=== PATIENT | male | born 1985 | race Two or more races ===

== ENCOUNTER 2018-12-01 23:32 | Emergency (ER) | payer MEDICAID, OTHER ==
[~2018-12-01] VITALS: Ht 170.2 cm; Wt 93.0 kg
--- NOTE | 2018-12-01 23:40 | NUR ---
TECH AT BEDSIDE FOR EKG
--- NOTE | 2018-12-01 23:43 | NUR ---
101.7 RECTAL TEMP. AWARE.
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
[2018-12-02 00:06] LABS: BASOPHILS # (AUTO) 0.1 /CMM (0.0-0.2); BASOPHILS % (AUTO) 0.7 % (0.0-2.0); EOSINOPHILS % (AUTO) 2.5 % (0.0-6.0); HEMATOCRIT 44 % (39-51); HEMOGLOBIN 14.6 g/dL (13.5-17.5); LYMPHOCYTES # (AUTO) 1.7 /CMM (0.8-4.8); LYMPHOCYTES % (AUTO) 15.6 % (20.0-44.0); MEAN CORPUSCULAR HGB CONC 34 g/dl (31.0-36.0); MEAN CORPUSCULAR VOLUME 90 fL (80-96); MONOCYTES # (AUTO) 0.5 /CMM (0.1-1.30); MONOCYTES % (AUTO) 4.7 % (2.0-12.0); NEUTROPHILS # (AUTO) 8.5 /CMM (1.8-8.9); NEUTROPHILS % (AUTO) 76.5 % (43.0-81.0); PLATELET COUNT (AUTO) 289 /CMM (150-450); RED BLOOD CELL COUNT(AUTO) 4.84 MIL/uL (4.5-6.0); WHITE BLOOD COUNT (AUTO) 11.1 K/uL (4.3-11.0)
[2018-12-02] MEDS ORDERED: ACETAMINOPHEN 650 MG/SUPP.RECT RC ONE ×2 (00:06)
[2018-12-02 00:12] LABS: CALCIUM, SERUM 8.4 mg/dL (8.5-10.1); CARBON DIOXIDE 16 mmol/L (21-32); CHLORIDE 103 mmol/L (98-107); CREATININE 1.3 mg/dL (0.6-1.3); GLUCOSE 110 mg/dL (74-106); POTASSIUM 3.1 mmol/L (3.5-5.1); SODIUM SERUM 141 mmol/L (136-145); UREA NITROGEN, BLOOD 13 mg/dL (7-18)
--- NOTE | 2018-12-02 00:12 | NUR ---
PHLEB AT BEDSIDE FOR LAB DRAW
--- NOTE | 2018-12-02 00:15 | NUR ---
PT TAKEN TO CT VIA VIRY
[2018-12-02 00:17] LABS: ALANINE AMINOTRANSFERASE 68 U/L (12-78); ALBUMIN 3.6 g/dL (3.4-5.0); ALCOHOL, BLOOD 124 mg/dL (0-0); ALKALINE PHOSPHATASE 98 U/L (46-116); ASPARTATE AMINOTRANSFERASE 61 U/L (15-37); BILIRUBIN,DIRECT 0.1 mg/dL (0.0-0.2); BILIRUBIN,TOTAL 0.3 mg/dL (0.2-1.0); TOTAL PROTEIN, SERUM 7.2 g/dL (6.4-8.2)
[2018-12-02 00:18] LABS: ACETAMINOPHEN 0 ug/ml (10-30); SALICYLATE 2.7 mg/dL (2.8-20.0)
--- NOTE | 2018-12-02 00:43 | NUR ---
PT RETURNED FROM CT. UNABLE TO COMPLETE CT. AWARE.
[2018-12-02] MEDS ORDERED: LORAZEPAM INJ 2 MG/ML VIAL ONE (01:14)
[2018-12-02] MEDS ORDERED: LORAZEPAM INJ 2 MG/ML VIAL IV ONE (01:30)
--- NOTE | 2018-12-02 01:58 | NUR ---
URINE COLLECTED AND SENT TO LAB
[2018-12-02 02:06] LABS: APPEARANCE,URINE CLEAR (CLEAR); BILIRUBIN,URINE NEGATIVE (NEGATIVE); BLOOD, URINE 1+ Ery/uL (NEGATIVE); COLOR,URINE YELLOW (YELLOW); KETONES,URINE NEGATIVE (NEGATIVE); LEUKOCYTE ESTERASE ,URINE NEGATIVE (NEGATIVE); NITRITE, URINE NEGATIVE (NEGATIVE); PH,URINE 5.5 (5.0-8.0); PROTEIN,URINE TRACE mg/dl (NEGATIVE); UGLUCOSE NEGATIVE (NEGATIVE); UROBILINOGEN,URINE 0.2 EU/dL (0.2)
[2018-12-02 02:13] LABS: BACTERIA,URINE Few /HPF (None Seen); SPERM,URINE Few /HPF (None Seen); SQUAMOUS EPITHELIAL CELL,UR Rare /HPF (None Seen); WBC,URINE 0-2 /HPF (0-3)
[2018-12-02] MEDS ORDERED: IV NS 0.9% 1,000 ML BAG IV ONE ×3 (03:00)
[2018-12-02] MEDS ORDERED: POTASSIUM CHLORIDE 20 MEQ TAB.PRT.SR PO ONE ×2 (03:30→03:44)
--- NOTE | 2018-12-02 04:04 | NUR ---
Patient is resting comfortably in bed with eyes closed. Easily aroused. VSS.
--- NOTE | 2018-12-02 04:42 | NUR ---
PHLEB AT BEDSIDE FOR LAB REDRAW
[2018-12-02 05:12] LABS: CALCIUM, SERUM 7.4 mg/dL (8.5-10.1); CREATININE 0.8 mg/dL (0.6-1.3); POTASSIUM 3.6 mmol/L (3.5-5.1)
[2018-12-02 05:17] VITALS: BP 118/81
--- NOTE | 2018-12-02 05:29 | NUR ---
LACTIC ACID 2.4. MD AWARE.
--- NOTE | 2018-12-02 06:11 | NUR ---
IV removed. Catheter intact and site benign. Pressure and 4x4 applied to site. No bleeding noted.Patient discharged to home in stable condition. Written and verbal after care instructions given. Patient verbalizes understanding of instruction. PT REFUSED HOMELESS PACKET, TAP CARD, AND FOOD.
== END 2018-12-02 06:14 | disposition home or self-care (01) ==
LOC: ER 23:34 → EDBD 23:34 → ER 12-02 06:14
DX: F15.10 Other stimulant abuse, uncomplicated (principal); E86.0 Dehydration; E87.2 Acidosis; M62.82 Rhabdomyolysis; F19.10 Other psychoactive substance abuse, uncomplicated; R45.1 Restlessness and agitation; F10.10 Alcohol abuse, uncomplicated; R00.0 Tachycardia, unspecified; F12.10 Cannabis abuse, uncomplicated; F13.20 Sedative, hypnotic or anxiolytic dependence, uncomplicated; Y90.6 Blood alcohol level of 120-199 mg/100 ml
CPT/HCPCS: 36415 ×2; 71045; 80048 ×2; 80076; 80305; 80307; 80329; 81001; 82550 ×2; 83605 ×2; 84484; 85025; 87040 ×2; 93005; 96361; 96374; 99284; G0480; J2060; J7030 ×2; 81000-TC

== ENCOUNTER 2018-12-02 16:17 | Emergency (ER) | payer MEDICAID ==
[~2018-12-02] VITALS: Ht 167.6 cm; Wt 81.6 kg
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
--- NOTE | 2018-12-02 16:32 | NUR ---
DR BURNS AT BEDSIDE
--- NOTE | 2018-12-02 17:19 | NUR ---
Patient discharged to home in stable condition. Written and verbal after care instructions given. Patient verbalizes understanding of instruction.
--- NOTE | 2018-12-02 17:19 | NUR ---
PT WILL BE PICKED UP BY MOTHER. ASSISTED TO WAITING ROOM.
[2018-12-02 17:20] VITALS: BP 148/89
== END 2018-12-02 17:21 | disposition home or self-care (01) ==
LOC: ER 16:22
DX: F41.9 Anxiety disorder, unspecified (principal); F15.10 Other stimulant abuse, uncomplicated; F19.10 Other psychoactive substance abuse, uncomplicated; F10.10 Alcohol abuse, uncomplicated; Y90.9 Presence of alcohol in blood, level not specified

== ENCOUNTER 2019-11-19 10:33 | Emergency (ER) | payer OTHER, MEDICAID ==
[~2019-11-19] VITALS: Ht 167.6 cm; Wt 77.1 kg
[2019-11-19] MEDS ORDERED: TDAP [DIPH/PERTUSSIS/TET] 0.5 ML VIAL IM ONE ×2 (10:49→11:00)
[2019-11-19 11:09] VITALS: BP 130/71
--- NOTE | 2019-11-19 11:09 | NUR ---
lac on the left hand between thumb and index finger. On room air, breathing evenly and unlabored. kept comfortable, will continue to monitor accordingly.
--- NOTE | 2019-11-19 11:10 | NUR ---
Patient discharged to home in stable condition. Written and verbal after care instructions given. Patient verbalizes understanding of instruction.
== END 2019-11-19 11:10 | disposition home or self-care (01) ==
LOC: ER 10:33
DX: S61.211A Laceration without foreign body of left index finger without damage to nail, initial encounter (principal); W26.8XXA Contact with other sharp object(s), not elsewhere classified, initial encounter; Y93.89 Activity, other specified; Y92.89 Other specified places as the place of occurrence of the external cause; Y99.8 Other external cause status
CPT/HCPCS: 90471; 90715; 99283; A6403

== ENCOUNTER 2019-12-17 06:08 | Emergency (ER) | payer MEDICAID, OTHER ==
[~2019-12-17] VITALS: Ht 167.6 cm; Wt 77.1 kg
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
[2019-12-17] MEDS ORDERED: LORAZEPAM 1 MG TABLET ONE (06:36)
[2019-12-17] MEDS ORDERED: LORAZEPAM 1 MG TABLET PO ONE (07:00)
--- NOTE | 2019-12-17 07:19 | NUR ---
ENDORSEMENT RECEIVED FROM ZAHIRA HOLLOWAY FOR KRISH, PATIENT IN BED ASLEEP, AROUSABLE BY PAINFUL STIMULI, DOES NOT ANSWER QUESTIONS. HOOKED TO MONITOR, SITTER AT BEDSIDE. WILL CONTINUE TO MONITOR
--- NOTE | 2019-12-17 08:06 | NUR ---
patient awake. made MD aware
--- NOTE | 2019-12-17 09:12 | NUR ---
psych social worker nayana and dr garnica at bedside
--- NOTE | 2019-12-17 09:29 | NUR ---
Patient given written and verbal discharge instructions. Patient verbalizes understanding of instructions. Patient is ambulatory with steady gait. Refuses offer of penitentiary placement. Patient given list of available shelters in surrounding area. Patiet in proper clothing upon discharge. Name band removed. All belongings returned to patient.
[2019-12-17 09:32] VITALS: BP 147/86
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
== END 2019-12-17 09:33 | disposition home or self-care (01) ==
LOC: ER 06:09
DX: F15.10 Other stimulant abuse, uncomplicated (principal); F10.10 Alcohol abuse, uncomplicated; F17.200 Nicotine dependence, unspecified, uncomplicated; Y90.9 Presence of alcohol in blood, level not specified

== ENCOUNTER 2019-12-20 07:35 | Emergency (ER) | payer MEDICAID ==
[~2019-12-20] VITALS: Ht 165.1 cm; Wt 59.9 kg
[2019-12-20 07:38] VITALS: BP 134/85
--- NOTE | 2019-12-20 07:40 | NUR ---
PT SEEN AND EXAMINED BY .
[2019-12-20] MEDS ORDERED: LORAZEPAM 1 MG TABLET ONE (07:44)
--- NOTE | 2019-12-20 07:56 | NUR ---
Patient given written and verbal discharge instructions. Patient verbalizes understanding of instructions. Patient is ambulatory with steady gait. Refuses offer of halfway placement. Patient given list of available shelters in surrounding area.
[2019-12-20] MEDS ORDERED: LORAZEPAM 1 MG TABLET PO ONE (08:00)
== END 2019-12-20 07:57 | disposition home or self-care (01) ==
LOC: ER 07:42
DX: F15.129 Other stimulant abuse with intoxication, unspecified (principal); F17.200 Nicotine dependence, unspecified, uncomplicated

== ENCOUNTER 2019-12-21 03:30 | Emergency (ER) | payer MEDICAID ==
[~2019-12-21] VITALS: Ht 167.6 cm; Wt 77.1 kg
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
--- NOTE | 2019-12-21 04:00 | NUR ---
PATIENT IS CONNECTED TO DOUGH MOLDER HAND.
--- NOTE | 2019-12-21 06:32 | NUR ---
PT MEDICALLY STABLE FOR D/C. WALKING W/ STEADY GAITS. Patient discharged to home in stable condition. Written and verbal after care instructions given which refused to sign by pt.
[2019-12-21 06:34] VITALS: BP 141/85
== END 2019-12-21 06:34 | disposition home or self-care (01) ==
LOC: ER 03:30
DX: F15.10 Other stimulant abuse, uncomplicated (principal); F17.200 Nicotine dependence, unspecified, uncomplicated

== ENCOUNTER 2019-12-30 10:18 | Emergency (ER) | payer MEDICAID ==
[~2019-12-30] VITALS: Ht 167.6 cm; Wt 77.1 kg
[2019-12-30 10:20] VITALS: BP 133/90
--- NOTE | 2019-12-30 10:28 | NUR ---
SEEN AND EXAMINED BY .
--- NOTE | 2019-12-30 10:34 | NUR ---
Patient discharged to home in stable condition. Written and verbal after care instructions given. Patient verbalizes understanding of instruction.
== END 2019-12-30 10:34 | disposition home or self-care (01) ==
LOC: ER 10:26
DX: F15.10 Other stimulant abuse, uncomplicated (principal); F41.9 Anxiety disorder, unspecified; R00.0 Tachycardia, unspecified

== ENCOUNTER 2020-07-25 18:54 | Inpatient (IN) | payer MEDICAID ==
[~2020-07-25] VITALS: Ht 160 cm; Wt 90.7 kg
--- NOTE | 2020-07-25 19:04 | NUR ---
DR. SHELTON AT BEDSIDE FOR EVAL.
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
--- NOTE | 2020-07-25 19:10 | NUR ---
CALLED POISON CONTROL STATED TO DRAW LABS AND REPEAT IN 4 HRS FOR ANY CHANGES. ALSO TO GIVE ANTIDOTE IF SYMPTOMATIC.
[2020-07-25 19:35] LABS: BASOPHILS % (AUTO) 0.4 % (0.0-2.0); EOSINOPHILS % (AUTO) 0.1 % (0.0-6.0); HEMATOCRIT 43 % (39-51); HEMOGLOBIN 14.4 g/dL (13.5-17.5); LYMPHOCYTES # (AUTO) 1.2 /CMM (0.8-4.8); LYMPHOCYTES % (AUTO) 10.4 % (20.0-44.0); MEAN CORPUSCULAR HGB CONC 34 g/dl (31.0-36.0); MEAN CORPUSCULAR VOLUME 88 fL (80-96); MONOCYTES # (AUTO) 0.9 /CMM (0.1-1.30); NEUTROPHILS # (AUTO) 9.2 /CMM (1.8-8.9); NEUTROPHILS % (AUTO) 81.1 % (43.0-81.0); PLATELET COUNT (AUTO) 271 /CMM (150-450); RED BLOOD CELL COUNT(AUTO) 4.89 MIL/uL (4.5-6.0); WHITE BLOOD COUNT (AUTO) 11.3 K/uL (4.3-11.0)
[2020-07-25 19:46] LABS: CALCIUM, SERUM 8.9 mg/dL (8.5-10.1); CARBON DIOXIDE 25 mmol/L (21-32); CHLORIDE 101 mmol/L (98-107); CREATININE 1.1 mg/dL (0.6-1.3); GLUCOSE 108 mg/dL (74-106); SODIUM SERUM 138 mmol/L (136-145); UREA NITROGEN, BLOOD 19 mg/dL (7-18)
[2020-07-25 19:50] LABS: ACETAMINOPHEN 7 ug/ml (10-30); ALANINE AMINOTRANSFERASE 54 U/L (12-78); ALBUMIN 3.9 g/dL (3.4-5.0); ALKALINE PHOSPHATASE 101 U/L (46-116); ASPARTATE AMINOTRANSFERASE 40 U/L (15-37); BILIRUBIN,DIRECT 0.4 mg/dL (0.0-0.2); TOTAL PROTEIN, SERUM 7.9 g/dL (6.4-8.2)
[2020-07-25 19:52] LABS: ALCOHOL, BLOOD < 3 mg/dL (0-0)
--- NOTE | 2020-07-25 20:00 | NUR ---
PAT PLACED PT ON HOLD FOR DANGER TO SELF
[2020-07-25] MEDS ORDERED: IV NS 0.9% 1,000 ML IV ONE (20:30)
[2020-07-25] MEDS ORDERED: POTASSIUM CHLORIDE 20 MEQ TAB.PRT.SR PO ONE (20:30)
[2020-07-25] MEDS ORDERED: ACETYLCYSTEINE IV 6,000 MG/30 ML VIAL IV ONE (20:30)
--- NOTE | 2020-07-25 20:35 | NUR ---
URINE COLLECTED, SENT TO LAB.
--- NOTE | 2020-07-25 20:50 | NUR ---
PT C/O MINIMAL CP AND SOB. VITALS STABLE, NOTED HR AT 116, MD AWARE.
--- NOTE | 2020-07-25 20:56 | NUR ---
CALLED POSION CONTROL REGARDING PT HAVING A REACTION. POSION CONTROL STATED TO GIVE BENADRYL AND CONTINUE MUCOMYST AFTER.
--- NOTE | 2020-07-25 21:00 | NUR ---
MUCOMYST DRIP 150MG/KG ([id number]) GIVEN TO PT OVER 1HR.
[2020-07-25] MEDS ORDERED: LORAZEPAM INJ 2 MG/ML VIAL IV STA (22:21)
[2020-07-25] MEDS ORDERED: ACETYLCYSTEINE IV SCH (22:30)
[2020-07-25] MEDS ORDERED: ONDANSETRON HCL/PF 4 MG/2 ML VIAL IVP PRN (22:30)
[2020-07-25] MEDS ORDERED: Z GUARD REMEDY 2 OZ OINT TP PRN (22:30)
[2020-07-25] MEDS ORDERED: ZOLPIDEM TARTRATE 5 MG TABLET PO PRN (22:30)
[2020-07-25] MEDS ORDERED: LORAZEPAM INJ 2 MG/ML VIAL ONE (22:30)
[2020-07-25] MEDS ORDERED: MAG HYDROX/AL HYDROX/SIMETH 30 ML UDC PO PRN (22:30)
[2020-07-25] MEDS ORDERED: D5W IV SCH (22:30)
[2020-07-25] MEDS ORDERED: HYDROCODONE/APAP 5/325MG TABLET PO PRN (22:30)
[2020-07-25] MEDS ORDERED: ACETAMINOPHEN 325 MG TABLET PO PRN (22:30)
[2020-07-25] MEDS ORDERED: MAGNESIUM HYDROXIDE 30 ML UDC PO PRN (22:30)
[2020-07-25] MEDS: IV NS 0.9% 1,000 ML IV SCH (23:20)
[2020-07-25] MEDS ORDERED: diphenhydrAMINE HCL 50 MG/ML VIAL IV PRN (23:30)
[2020-07-25] MEDS ORDERED: diphenhydrAMINE HCL 50 MG/ML VIAL IV ONE (23:30)
--- NOTE | 2020-07-25 23:47 | NUR ---
PT RESTING COMFORTABLY. WILL CONTINUE MUCOMYST.
[2020-07-25] MEDS ORDERED: ACETYLCYSTEINE 20% ORAL SOLN 6,000 MG/30 ML VIAL ONE (23:48)
[2020-07-26] MEDS ORDERED: D5W IV SCH ×2 (02:30→07:00)
[2020-07-26] MEDS ORDERED: ACETYLCYSTEINE IV SCH ×2 (02:30→07:00)
--- NOTE | 2020-07-26 02:56 | NUR ---
PT PULLED OUT IV. STATED "IT WAS ITCHING" IV INITIATED RH 20G
[2020-07-26] MEDS ORDERED: ACETYLCYSTEINE 20% SOLN 800 MG/4 ML VIAL ONE (04:46)
[2020-07-26] MEDS ORDERED: ACETYLCYSTEINE 10% SOLN 400 MG/4 ML VIAL ONE (04:47)
--- NOTE | 2020-07-26 05:10 | NUR ---
ACETYLCYSTEINE NOT AVAILABLE. WILL WAIT FOR PHARMACY.
[2020-07-26 05:44] LABS: BASOPHILS % (AUTO) 0.2 % (0.0-2.0); EOSINOPHILS % (AUTO) 0.3 % (0.0-6.0); HEMATOCRIT 40 % (39-51); HEMOGLOBIN 13.3 g/dL (13.5-17.5); LYMPHOCYTES # (AUTO) 1.2 /CMM (0.8-4.8); LYMPHOCYTES % (AUTO) 9.8 % (20.0-44.0); MEAN CORPUSCULAR HGB CONC 34 g/dl (31.0-36.0); MEAN CORPUSCULAR VOLUME 88 fL (80-96); MONOCYTES # (AUTO) 0.7 /CMM (0.1-1.30); MONOCYTES % (AUTO) 5.8 % (2.0-12.0); NEUTROPHILS % (AUTO) 83.9 % (43.0-81.0); PLATELET COUNT (AUTO) 252 /CMM (150-450); RED BLOOD CELL COUNT(AUTO) 4.51 MIL/uL (4.5-6.0); WHITE BLOOD COUNT (AUTO) 11.9 K/uL (4.3-11.0)
[2020-07-26 06:13] LABS: CALCIUM, SERUM 8.2 mg/dL (8.5-10.1); CREATININE 0.9 mg/dL (0.6-1.3); MAGNESIUM 2.5 mg/dL (1.8-2.4); PHOSPHORUS 3.1 mg/dL (2.5-4.9); POTASSIUM 3.5 mmol/L (3.5-5.1)
--- NOTE | 2020-07-26 06:40 | NUR ---
CALLED PHARMACY REGARDING DRIP. PHARMACY WILL CALL BACK.
--- NOTE | 2020-07-26 07:41 | NUR ---
RECEIVED REPORT FROM AMIE RODRIGES. PT IS AAOX3, NOT IN RESPIRATORY DISTRESS, WITH ONGOING IVF TRANSFUSING WELL, V/S STABLE, KEPT RESTED AND COMFORTABLE. WILL CONTINUE TO MONITOR.
[2020-07-26] MEDS: IV NS 0.9% 1,000 ML IV SCH (08:23)
--- NOTE | 2020-07-26 09:11 | NUR ---
SPOKED TO POISON CONTROL SUGGESTED PT,INR,BMP AND TYLENOL LEVEL.
[2020-07-26] MEDS ORDERED: IV NS 0.9% 1,000 ML IV PRN (10:00)
[2020-07-26 11:01] LABS: ALBUMIN 3.3 g/dL (3.4-5.0); BILIRUBIN,DIRECT 0.2 mg/dL (0.0-0.2); BILIRUBIN,TOTAL 0.9 mg/dL (0.2-1.0); TOTAL PROTEIN, SERUM 6.9 g/dL (6.4-8.2)
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
--- NOTE | 2020-07-26 13:40 | NUR ---
[facility]: Pt was accepted to [facility] with the accepting doctors as: Dr. Danielle and Dr. Apodaca. Report will be given to Dee ([phone] ext [phone]).
--- NOTE | 2020-07-26 15:33 | NUR ---
Pt was accepted to [facility] with the accepting doctors as: Dr. Danielle and Dr. Apodaca. Report will be given to Dee ([phone] ext [phone]).
--- NOTE | 2020-07-26 15:48 | NUR ---
report given to Gurdeep HOLLOWAY for gregoria
--- NOTE | 2020-07-26 16:07 | NUR ---
CALLED [facility] AND CONFIRMED TRANSPORT TO [facility]. ETA IS 3 HOURS.
--- NOTE | 2020-07-26 17:53 | NUR ---
SPOKED TO DEEPA OF POISON CONTROL. ACETYLCYSNIA CHAUDHARY
--- NOTE | 2020-07-26 18:23 | NUR ---
REPORT GIVEN TO ROBYN HAYS OF [facility] FOT PT TRANSPORT TO [facility]. PT IS IN STABLE CONDITION.
--- NOTE | 2020-07-26 18:28 | NUR ---
IV removed. Catheter intact and site benign. Pressure and 4x4 applied to site. No bleeding noted.
--- NOTE | 2020-07-26 18:35 | NUR ---
PT LEFT ON GURNEY VIA AMBULANCE WITH 2 EMT AT BEDSIDE.
[2020-07-26 18:51] VITALS: BP 128/84
== END 2020-07-26 18:35 | DRG 817 ==
LOC: ER 18:57 → TRANSITION 21:37
PROVIDERS: ADMIT Family Medicine; ATTEND Internal Medicine
DX: T39.1X2A Poisoning by 4-Aminophenol derivatives, intentional self-harm, initial encounter (principal); Y92.89 Other specified places as the place of occurrence of the external cause; N17.0 Acute kidney failure with tubular necrosis; E66.9 Obesity, unspecified; D72.829 Elevated white blood cell count, unspecified; F32.9 Major depressive disorder, single episode, unspecified; Z59.0 Homelessness; Z68.35 Body mass index [BMI] 35.0-35.9, adult; R74.01 Elevation of levels of liver transaminase levels; E87.6 Hypokalemia; Z72.0 Tobacco use; F15.10 Other stimulant abuse, uncomplicated; F10.10 Alcohol abuse, uncomplicated; Y90.0 Blood alcohol level of less than 20 mg/100 ml
CPT/HCPCS: 36415; 80048-TC; 80061-TC; 80076-TC; 83735-TC; 84100-TC; 85025-TC; 85610-TC; 85730-TC; 87081-TC; C9803; G0378; G0480; J0132; J1200; J2060; J2405; J7030; J7070

== ENCOUNTER 2021-01-25 22:04 | Emergency (ER) | payer MEDICAID ==
[~2021-01-25] VITALS: Ht 172.7 cm; Wt 74.8 kg
--- NOTE | 2021-01-25 22:34 | NUR ---
HAZEL FROM HOME TO ER BED 14. AAOX4. NOT IN RESP DISTRESS. AMBULATORY. BROUGHT IN FOR NAUSEA AND ABD PAIN. PT REPORT HE WAS DRINKING EARLIER. MD WAS AT THE BEDSIDE FOR EVAL. ORDERS RECEIVED, NOTED AND CARRIED OUT.
[2021-01-25] MEDS ORDERED: ONDANSETRON HCL/PF 4 MG/2 ML VIAL ONE (22:49)
[2021-01-25] MEDS ORDERED: ONDANSETRON HCL/PF - ER 4 MG/2 ML VIAL IV ONE (23:00)
[2021-01-25 23:04] LABS: BASOPHILS % (AUTO) 0.2 % (0.0-2.0); EOSINOPHILS % (AUTO) 0.7 % (0.0-6.0); HEMATOCRIT 39 % (39-51); HEMOGLOBIN 13.3 g/dL (13.5-17.5); LYMPHOCYTES # (AUTO) 1.8 K/uL (0.8-4.8); LYMPHOCYTES % (AUTO) 18.7 % (20.0-44.0); MEAN CORPUSCULAR HGB CONC 34 g/dl (31.0-36.0); MEAN CORPUSCULAR VOLUME 87 fL (80-96); MONOCYTES # (AUTO) 0.8 K/uL (0.1-1.30); MONOCYTES % (AUTO) 8.5 % (2.0-12.0); NEUTROPHILS # (AUTO) 6.9 K/uL (1.8-8.9); NEUTROPHILS % (AUTO) 71.9 % (43.0-81.0); PLATELET COUNT (AUTO) 314 K/uL (150-450); RED BLOOD CELL COUNT(AUTO) 4.49 MIL/uL (4.5-6.0); WHITE BLOOD COUNT (AUTO) 9.6 K/uL (4.3-11.0)
[2021-01-25 23:15] LABS: CALCIUM, SERUM 8.5 mg/dL (8.5-10.1); CREATININE 1.5 mg/dL (0.6-1.3); POTASSIUM 3.6 mmol/L (3.5-5.1)
[2021-01-25 23:21] LABS: ALBUMIN 3.6 g/dL (3.4-5.0); BILIRUBIN,TOTAL 0.2 mg/dL (0.2-1.0); TOTAL PROTEIN, SERUM 7.2 g/dL (6.4-8.2)
--- NOTE | 2021-01-26 01:23 | NUR ---
PT AWOKEN AND AMBULATED TO BATHROOM ON STEAADY GAIT WITH ANY ASSIST. PT VERBALIZED THAT HE FEEL SBETTER AND WANTS TO GO BACK HOME TO SLEEP.
[2021-01-26 01:47] VITALS: BP 140/82
--- NOTE | 2021-01-26 01:47 | NUR ---
Patient discharged to home in stable condition. Written and verbal after care instructions given. Patient verbalizes understanding of instruction.IV removed. Catheter intact and site benign. Pressure and 4x4 applied to site. No bleeding noted. Pt ambulatory with a steady gait.
== END 2021-01-26 01:48 | disposition home or self-care (01) ==
LOC: ER 22:05
DX: F10.129 Alcohol abuse with intoxication, unspecified (principal); R47.81 Slurred speech; Y90.9 Presence of alcohol in blood, level not specified
CPT/HCPCS: 36415; 80048; 80076; 83690; 85025; 96374; 99283; J2405 ×2

== ENCOUNTER 2023-06-28 07:39 | Emergency (ER) | payer MEDICAID, MEDICARE ==
[~2023-06-28] VITALS: Ht 165.1 cm; Wt 74.4 kg
[2023-06-28 08:29] LABS: BASOPHILS # (AUTO) 0.1 K/uL (0.0-0.2); BASOPHILS % (AUTO) 0.4 % (0.0-2.0); HEMATOCRIT 48 % (39-51); HEMOGLOBIN 15.9 g/dL (13.5-17.5); LYMPHOCYTES # (AUTO) 1.1 K/uL (0.8-4.8); LYMPHOCYTES % (AUTO) 5.4 % (20.0-44.0); MEAN CORPUSCULAR HEMOGLOBIN 30 PG (26.0-33.0); MEAN CORPUSCULAR HGB CONC 34 g/dl (31.0-36.0); MEAN CORPUSCULAR VOLUME 89 fL (80-96); MONOCYTES # (AUTO) 1.6 K/uL (0.1-1.30); MONOCYTES % (AUTO) 8.4 % (2.0-12.0); NEUTROPHILS # (AUTO) 16.7 K/uL (1.8-8.9); NEUTROPHILS % (AUTO) 85.8 % (43.0-81.0); PLATELET COUNT (AUTO) 353 K/uL (150-450); RED BLOOD CELL COUNT(AUTO) 5.35 MIL/uL (4.5-6.0); RED CELL DISTRIBUTION WIDTH 13.7 % (11.5-15.0); WHITE BLOOD COUNT (AUTO) 19.5 K/uL (4.3-11.0)
[2023-06-28 09:00] LABS: CARBON DIOXIDE 21 mmol/L (21-32); CHLORIDE 97 mmol/L (98-107); CREATININE 2.5 mg/dL (0.6-1.3); GLUCOSE 110 mg/dL (74-106); POTASSIUM 3.4 mmol/L (3.5-5.1); SODIUM SERUM 136 mmol/L (136-145); UREA NITROGEN, BLOOD 35 mg/dL (7-18)
[2023-06-28 09:05] LABS: ALANINE AMINOTRANSFERASE 34 U/L (12-78); ALBUMIN 4.4 g/dL (3.4-5.0); ALCOHOL, BLOOD < 3 mg/dL (0-10); ALKALINE PHOSPHATASE 113 U/L (46-116); ASPARTATE AMINOTRANSFERASE 35 U/L (15-37); BILIRUBIN,TOTAL 0.6 mg/dL (0.2-1.0); TOTAL PROTEIN, SERUM 8.9 g/dL (6.4-8.2)
[2023-06-28 09:06] LABS: ACETAMINOPHEN 0 ug/ml (10-30); SALICYLATE 1.2 mg/dL (2.8-20.0)
[2023-06-28 09:08] LABS: APPEARANCE,URINE SLIGHTLY CLOUDY (CLEAR); BILIRUBIN,URINE 1+ (NEGATIVE); BLOOD, URINE 2+ Ery/uL (NEGATIVE); COLOR,URINE DARK YELLOW (YELLOW); KETONES,URINE TRACE mg/dL (NEGATIVE); LEUKOCYTE ESTERASE ,URINE NEGATIVE (NEGATIVE); NITRITE, URINE NEGATIVE (NEGATIVE); PROTEIN,URINE 1+ mg/dl (NEGATIVE); UGLUCOSE NEGATIVE (NEGATIVE); UROBILINOGEN,URINE 0.2 EU/dL (0.2)
[2023-06-28 09:15] LABS: ADD URINE CULTURE NO; BACTERIA,URINE Rare /HPF (None Seen); SQUAMOUS EPITHELIAL CELL,UR Few /HPF (None Seen); WBC,URINE 0-2 /HPF (0-3)
[2023-06-28 09:40] LABS: BARBITURATE, URINE NEGATIVE (NEGATIVE); BENZODIAZEPINE, URINE NEGATIVE (NEGATIVE); CANNABINOID, URINE NEGATIVE (NEGATIVE); COCCAINE, URINE NEGATIVE (NEGATIVE); OPIATE, URINE NEGATIVE (NEGATIVE); PHENCYCLIDINE SCREEN,URINE NEGATIVE (NEGATIVE)
[2023-06-28 09:41] LABS: AMPHETAMINE, URINE POSITIVE (NEGATIVE)
[2023-06-28] MEDS ORDERED: POTASSIUM CHLORIDE 20 MEQ TAB.PRT.SR PO ONE ×2 (10:00→10:59)
[2023-06-28] MEDS ORDERED: LORAZEPAM 1 MG TABLET ONE (11:57)
[2023-06-28] MEDS ORDERED: LORAZEPAM 1 MG TABLET PO ONE (12:00)
[2023-06-28 12:37] VITALS: BP 128/77; TEMP 97.9; O2SAT 100
== END 2023-06-28 12:37 ==
LOC: ER 07:39
DX: R45.851 Suicidal ideations (principal); F15.10 Other stimulant abuse, uncomplicated; Z20.822 Contact with and (suspected) exposure to COVID-19
CPT/HCPCS: 36415; 80053-TC; 81001; 85025-TC; G0480